=== PATIENT | female | born 1970 | race Caucasian/White ===

== ENCOUNTER 2018-11-15 09:00 | Inpatient (IN) ==
--- NOTE | 2018-11-11 14:38 | Anesthesiology Consultation ---
Date of Service November 11, 2018 Assessment & Plan (1) Encounter for pre-operative examination: - Check test AM DOS Chart Review Chart Review: Acceptable Risk for Surgery (pending review of confirmed preop EKG (11/11/18 [facility])- still unconfirmed at time of chart review) and Patient NOT seen in Pre Admission Testing History Surgery Operation Date: 11/15/18 11:00 Proposed Procedures p Left Shoulder Proximal Humerus Fracture Open Reduction Internal Fixation - Dave Wolf MD Height/Weight Height: 5 ft 6 in Weight: 72.575 kg Allergies Allergy/AdvReac Type Severity Reaction Status Date / Time No Known Allergies Allergy Unverified 11/11/18 14:35 Medications Home Medications Medication Instructions Recorded Confirmed Last Taken atorvastatin 10 mg PO DAILY 11/11/18 11/11/18 Unknown sertraline [Zoloft] 25 mg PO DAILY 11/11/18 11/11/18 Unknown Past Medical History Medical History Acid reflux Cardiac murmur PER PATIENT QUESTIONNAIRE; NO RECENT ECHO; NO FURTHER DETAILS Depression ? - PT ON ZOLOFT Hyperlipidemia Past Surgical History Surgical History History of section X4 History of PONV History of PONV Social History Hx Alcohol Use: Yes alcohol intake frequency: a few times a month Testing Laboratory Results 11/11/18 WBC 6.51 H/H 12.4/36.6 PLATELETS 202 SODIUM 139 POTASSIUM 3.9 CHLORIDE 103 CO2 29 BUN 10 CREATININE 0.88 GLUCOSE 94 PT 10.9 INR 1.1 Electrocardiogram Date: 11/11/18 SB at 53bpm. Pulmonary disease pattern. LAFB. (unconfirmed report).
--- NOTE | 2018-11-14 08:54 | History & Physical Report ---
Date of Service November 14, 2018 Assessment & Plan (1) Proximal humerus fracture: Patient has a significantly displaced proximal humerus fracture. Treatment options were discussed and surgical intervention was recommended. Risks, benefits and alternatives to surgery including but not limited to infection, DVT, pain, stiffness, need for revision surgery, damage to blood vessels, damage to nerves, PE, , were discussed with the patient and they wish to proceed. Plan will be for ORIF left proximal humerus fracture. All questions answered. Surgery is scheduled for 11/15/[address] [facility]. She will follow up in the office about 2 weeks post operatively. Encounter type: subsequent encounter Fracture type: closed Fracture morphology: other fracture Fracture alignment: displaced Laterality: left Fracture healing: with routine healing Qualified Code(s): S42.292D - Other displaced fracture of upper end of left humerus, subsequent encounter for fracture with routine healing History of Present Illness Chief Complaint: Left proximal humerus fracture Patient is a 48 year old female with PMHx significant for GERD and a murmur (states has been told she has a murmur but no further testing needed). She presents with a displaced proximal humerus fracture. [place] causing her to fall hard into the ground. X- rays were obtained and demonstrated a displaced proximal humerus fracture. The head itself was still located within the glenoid. A CT scan was also obtained for preoperative planning. Patient denies headaches, sweats, fevers, chills, double vision, blurred vision, cough, sore throat, dysphagia, chest pain, sob, wheezing, n/v/d/c, numbness, tingling, fatigue, urinary symptoms, mood disorders. ROS positive for left shoulder pain. Allergies Allergy/AdvReac Type Severity Reaction Status Date / Time No Known Allergies Allergy Unverified 11/11/18 14:35 Home Medications Home Medications Medication Instructions Recorded Confirmed Type atorvastatin 10 mg PO DAILY 11/11/18 11/11/18 History sertraline [Zoloft] 25 mg PO DAILY 11/11/18 11/11/18 History Past Med/Surg History Medical History Acid reflux Cardiac murmur PER PATIENT QUESTIONNAIRE; NO RECENT ECHO; NO FURTHER DETAILS Depression ? - PT ON ZOLOFT Hyperlipidemia Surgical History History of section X4 Social History Hx Alcohol Use: Yes Review of Systems All systems reviewed & are unremarkable except as noted in HPI & below Physical Exam Constitutional: well developed and well nourished; no acute distress Eyes: PERRL, conjunctivae normal, anicteric sclerae ENMT: external ear and nose normal, oropharynx normal Neck: trachea midline, no thyromegaly Respiratory: normal respiratory effort, lungs clear to auscultation Cardiovascular: RRR, no murmur, no edema Musculoskeletal: Left shoulder-sling in place. Tenderness over proximal humerus and shoulder. Fingers are mobile. Sensation intact. Distal pulses are +2 bilaterally. Sensation to axillary nerve distribution intact. Distally neurologically intact. Skin: no rashes, warm and dry Neurologic: patellar DTR's 2+ bilat, sensation intact Psychiatric: A+Ox3, euthymic affect Results & Data Diagnostic Findings Left shoulder radiographs: Displaced proximal humerus fracture, humeral head is located within the glenoid.
[~2018-11-15 09:00] MED LIST: DEXAMETHASONE SOD INJ 4 MG/ML VIAL ONE; EPINEPHrine INJ 1 MG/ML AMP ONE; LR 15ML/HR IV SCH; ROPIVACAINE 0.5% 5 MG/ML 30 ML VIAL ONE
--- NOTE | 2018-11-15 09:46 | History & Physical Bridge Note ---
Date of Service November 15, 2018 History & Physical Bridge Note I have examined the patient, reviewed the History & Physical and in the interval since the performance of the History & Physical I have noted the following changes of clinical significance: she is having difficulty bringing the index finger and thumb together. sensation appears to be intact
[2018-11-15] MEDS ORDERED: CEFAZOLIN 2,000 MG/15 ML IV PUSH IV ONE (10:06)
[2018-11-15] MEDS ORDERED: fentaNYL citrate 100 MCG/2 ML VIAL ONE ×2 (10:29→11:22)
[2018-11-15] MEDS ORDERED: MIDAZOLAM HCL 1 MG/ML 2ML VIAL ONE ×2 (10:29)
[2018-11-15] MEDS ORDERED: HYDROmorphone INJ 2 MG/ML SYR/VIAL ONE (11:23)
[2018-11-15] MEDS ORDERED: ATROPINE SULFATE 0.1 MG/ML 10ML SYR IV PRN (12:42)
[2018-11-15] MEDS ORDERED: PROMETHAZINE HCL 12.5 MG in SODIUM CHLORIDE 0.9% 50 ML IV PRN (12:42)
[2018-11-15] MEDS ORDERED: ePHEDrine sulfate 50 MG/ML AMP IV PRN (12:42)
[2018-11-15] MEDS ORDERED: NALOXONE HCL 0.4 MG/1 ML VIAL/CARP IV PRN ×2 (12:42→13:55)
[2018-11-15] MEDS ORDERED: ONDANSETRON INJ 2 MG/ML 2 ML VIAL IV PRN ×2 (12:42→13:55)
[2018-11-15] MEDS ORDERED: HYDROmorphone INJ 1 MG/ML SYRINGE IV PRN (12:42)
[2018-11-15] MEDS ORDERED: LABETALOL HCL IV 5 MG/ML 20ML IV PRN (12:42)
[2018-11-15] MEDS ORDERED: FLUMAZENIL 0.1 MG/1 ML 10 ML VIAL IV PRN (12:42)
[2018-11-15] MEDS ORDERED: ROCURONIUM BROMIDE 10 MG/ML 5 ML VIAL ONE (12:44)
[2018-11-15] MEDS ORDERED: NEOSTIGMINE METHYLSULFATE 1 MG/ML 10ML VIAL ONE (12:44)
[2018-11-15] MEDS ORDERED: METOCLOPRAMIDE HCL INJ 5 MG/ML 2 ML VIAL ONE (12:44)
[2018-11-15] MEDS ORDERED: LIDOCAINE HCL 2% 2 ML VIAL/AMP(20MG/ML) INFIL ONE (12:44)
[2018-11-15] MEDS ORDERED: DEXAMETHASONE SOD INJ 4 MG/ML VIAL ONE (12:44)
[2018-11-15] MEDS ORDERED: PROPOFOL IV EMULSION 10 MG/ML 20 ML VIAL IV ONE (12:44)
[2018-11-15] MEDS ORDERED: ONDANSETRON INJ 2 MG/ML 2 ML VIAL ONE (12:44)
[2018-11-15] MEDS ORDERED: raNITIdine HCl 25 MG/ML VIAL IV ONE (12:44)
[2018-11-15] MEDS ORDERED: GLYCOPYRROLATE 0.2 MG/ML VIAL ONE (12:44)
[2018-11-15] MEDS ORDERED: PHENYLEPHRINE 100MCG/ML 5ML SYR ONE (12:44)
[2018-11-15] MEDS ORDERED: ePHEDrine sulfate 50 MG/ML SYR ONE (12:44)
[2018-11-15] MEDS ORDERED: KETOROLAC 30 MG/ML VIAL ONE (12:46)
--- NOTE | 2018-11-15 13:04 | Operative Report ---
Post Operative Report Pre & Post Diagnosis Operation Date: 11/15/18 11:00 Pre-Op Diagnosis: Unspecified Fracture of Upper End of Unspecified Humerus Post-Op Diagnosis: Unspecified Fracture of Upper End of Unspecified Humerus Procedure Operation Date: 11/15/18 11:00 Actual Procedures p Left Shoulder Proximal Humerus Fracture Open Reduction Internal Fixation(Left) - Dave Wolf MD Surgeon Dave Wolf MD Fixed Income Portfolio Manager Ezekiel Martinez PA-C Estimated Blood Loss 20 Findings Consistent with Post-Op Diagnosis Specimens None Drains None Anesthesia Type General Regional Complications none Disposition Accompanied Patient To Recovery: No Disposition: Recovery Room Indications The patient is a 40-year-old female who sustained a displaced fracture (3 part) proximal humerus fracture. There is displacement of the diaphysis medially and greater tuberosity piece posteriorly as well as laterally. Given the amount of displacement I recommended open reduction internal fixation. She was having some weakness to pinch of the index and thumb preoperatively. Sensation appeared to be intact but she was having some motor weakness. Description of Procedure Risks, benefits and alternatives to surgery including, but not limited to, infection DVT, pain, stiffness, need for revision surgery, failure to relieve all symptoms, damage to blood vessels, damage to nerves, risk of anesthesia were discussed with the patient and they wished to proceed. The patient was identified. Laterality was confirmed and marked. The patient received a preoperative antibiotic as well as an interscalene block. They were transferred to the operating room and placed in the supine position and induced into general endotracheal anesthesia per the anesthesia staff. There were then placed in a slight beachchair position. All pressure points were well padded.. We confirmed that we're able to achieve proper visualization of the fracture under fluoroscopy the arm was then prepped and draped in the usual standard manner with ChloraPrep. I made a longitudinal incision just lateral to the coracoid, sharply incising through the skin and utilizing Bovie electrocautery to achieve hemostasis. I identified the cephalic vein and mobilized it laterally with the deltoid. I mobilize the pectoralis and mobilize this medially releasing a small portion of the upper border of the pec tendon to improve visualization. I then identified and mobilized the conjoined tendon. I identified the long head of the biceps tendon. The proximal humerus diaphysis was underneath of the coracoid. This was bluntly able moved back into proper position. Holding traction on the arm I then reduced the fracture. I placed to #2 ultra braid sutures into the greater tuberosity piece to help hold this reduced. I then pinned the diaphysis to the humeral head. I then positioned a standard size Synthes proximal humerus locking plate into position. I placed a nonlocking screw into the oblong hole and adjusted the height of the plate as necessary. I then placed 2 locking screws into the humeral head while holding the reduction. I placed an additional locking screw distally. I then took the arm through live fluoroscopy to ensure that we maintained good reduction and plate placement. I was satisfied with reduction of the fracture and the alignment of the plate. I then placed 2 additional locking screws distally and placed additional locking screws proximally into the humeral head. I then again confirmed reduction on AP and scapular Y views and I was satisfied with the reduction as well as the screw lengths. The suture for the greater tuberosity fragment was then tied to the plate. I thoroughly irrigated the wound. The deltopectoral interval was closed with interrupted #1 Ethibond suture. The subcutaneous tissue was closed with interrupted 2-0 Vicryl suture. The skin was closed with hugo. A sterile dressing was applied. A sling was placed. All needle and sponge counts were correct at the end of the procedure. The patient was transferred to the PACU in stable condition without apparent complication. The PA-C was necessary for assistance with procedure for assistance in positioning, I attest to the content of the Intraoperative Record and any orders documented therein. Any exceptions are noted below.
--- NOTE | 2018-11-15 13:04 | Fluoroscopy Report ---
FL humerus LT 2V CLINICAL HISTORY: LEFT SHOULDER PROXIMAL HUMERUS FX ORIF COMPARISON STUDY: None FLUOROSCOPY TIME: 1 minute 44 seconds. NUMBER OF FLUOROSCOPIC IMAGES: 2 FINDINGS: 2 intraoperative fluoroscopic spot images demonstrate internal fixation of a proximal humer al fracture with a lateral metallic plate and multiple screws. There is no dislocation. IMPRESSION: Internally fixated proximal humeral fracture. Electronically signed by: Jordin Robertson M.D. 11/15/2018 1:02 PM
--- NOTE | 2018-11-15 13:30 | Anesthesiology Progress Note ---
Date of Service November 15, 2018 Anesthesia Post Procedure Vital Signs Vital Signs: Temp Pulse Pulse Resp BP Pulse Ox 11/15/18 13:20 79 18 133/73 99 11/15/18 13:10 74 16 129/70 97 11/15/18 13:02 36.6 C 90 12 134/69 98 11/15/18 09:33 36.6 C 68 18 146/80 H 98 Pain Intensity Left Upper Arm: Pain Intensity: 5 Transfer of Care Handoff Completed per policy Notes Mental Status: alert / awake / arousable Patient Amnestic to Procedure: Yes Nausea / Vomiting: adequately controlled Pain: adequately controlled Airway Patency, RR, SpO2: stable & adequate BP & HR: stable & adequate Hydration State: stable & adequate Anesthetic Complications: no major complications apparent
[2018-11-15] MEDS ORDERED: SODIUM CHLORIDE 0.9% 1000ML 1,000 ML IV SCH (13:55)
[2018-11-15] MEDS ORDERED: MAGNESIUM HYDROXIDE SUSP 30 ML UDC PO PRN (13:55)
[2018-11-15] MEDS ORDERED: METOCLOPRAMIDE HCL INJ 5 MG/ML 2 ML VIAL IV PRN (13:55)
[2018-11-15] MEDS ORDERED: BISACODYL 10 MG SUPP PR PRN (13:55)
[2018-11-15] MEDS ORDERED: HYDROmorphone INJ 0.5 MG/0.5 ML SYR IV PRN (13:55)
[2018-11-15] MEDS: CEFAZOLIN 1000MG 1,000 MG/7.5 ML SYR IV SCH (19:43)
[2018-11-15] MEDS: DOCUSATE SODIUM 100 MG CAP PO SCH (20:30)
[2018-11-15] MEDS ORDERED: SENNA 8.6 MG TAB PO SCH (21:00)
[2018-11-15] MEDS ORDERED: SERTRALINE HCL 50 MG TABLET PO SCH (21:00)
[2018-11-15] MEDS ORDERED: ATORVASTATIN 20 MG TAB PO SCH (21:00)
[2018-11-15] MEDS: ACETAMINOPHEN 500 MG TAB PO SCH (21:09)
[2018-11-15] MEDS ORDERED: COUGH DROP (SUGAR FREE) LOZ 24 LOZ/1 BOX BUCCAL ONE (23:38)
[2018-11-16] MEDS: OXYCODONE HCL IR 5 MG TAB (IMMEDIATE RELEASE) PO PRN ×3 (02:23→10:56)
[2018-11-16] MEDS: CEFAZOLIN 1000MG 1,000 MG/7.5 ML SYR IV SCH (02:24)
[2018-11-16] MEDS: ACETAMINOPHEN 500 MG TAB PO SCH ×2 (05:41→13:23)
[2018-11-16 06:23] LABS: Hematocrit (blood only) 29.6 % (37-47); Hemoglobin 10.1 g/dL (12.0-16.0); Mean Corpuscular Hgb Conc 34.1 g/dL (32-36); Mean Corpuscular Volume 86.3 fL (80-100); Mean Platelet Volume 9.2 fL (7.4-10.4); Platelet Count 174 K/uL (130-400); RDW Coefficient of Variation 12.7 % (11.5-14.5); RDW Standard Deviation 40.3 fL (36.4-46.3); Red Blood Count 3.43 M/uL (4.2-5.4); White Blood Count 7.82 K/uL (4.8-10.8)
[2018-11-16 06:48] LABS: BUN Creatinine Ratio 11.1 (10-20); Creatinine Clr Calc Pharmacy 93.1 ml/min; Est GFR (African American) 107.5; Est GFR (Non-African American) 92.8; Potassium 3.9 mmol/L (3.5-5.1)
--- NOTE | 2018-11-16 08:19 | Anesthesiology Progress Note ---
Date of Service November 16, 2018 Anesthesia Post Procedure Vital Signs Vital Signs: Temp Pulse Pulse Resp BP Pulse Ox 11/16/18 06:56 36.8 C 56 L 18 118/74 97 11/16/18 03:00 36.8 C 58 L 16 110/67 97 11/15/18 23:35 36.8 C 66 16 115/65 96 11/15/18 21:06 36.8 C 68 16 119/72 97 11/15/18 17:27 36.5 C 79 16 121/71 96 11/15/18 16:12 36.3 C L 66 16 118/70 96 11/15/18 15:23 36.6 C 80 18 125/71 92 11/15/18 14:20 75 18 113/70 96 11/15/18 13:50 36.6 C 81 16 121/73 96 11/15/18 13:40 37.0 C 78 23 131/72 94 11/15/18 13:30 77 18 136/73 96 11/15/18 13:20 79 18 133/73 99 11/15/18 13:10 74 16 129/70 97 11/15/18 13:02 36.6 C 90 12 134/69 98 11/15/18 09:33 36.6 C 68 18 146/80 H 98 Pain Intensity Left Upper Arm: Pain Intensity: 4 Notes Mental Status: alert / awake / arousable and participated in evaluation Patient Amnestic to Procedure: Yes Nausea / Vomiting: adequately controlled Pain: adequately controlled Airway Patency, RR, SpO2: stable & adequate BP & HR: stable & adequate Hydration State: stable & adequate Anesthetic Complications: no major complications apparent
[2018-11-16] MEDS: DOCUSATE SODIUM 100 MG CAP PO SCH (08:51)
[2018-11-16] MEDS ORDERED: CHOLECALCIFEROL 1,000 UNITS TAB PO SCH (09:00)
[2018-11-16] MEDS ORDERED: CYANOCOBALAMIN 500 MCG TABLET (VITAMIN B-12) PO SCH (09:00)
[2018-11-16] MEDS ORDERED: MULTIVITAMIN TAB PO SCH (09:00)
--- NOTE | 2018-11-16 10:55 | Orthopedic Progress Note ---
Date of Service November 16, 2018 Assessment & Plan (1) Proximal humerus fracture: Postop day 1 status post ORIF left proximal humerus fracture PT and OT protocols have been ordered. Continue current pain management. Plan for dc to home today if pain control remains stable and progressing with PT. Subjective Postop day 1 status post ORIF left proximal humerus fracture. Patient is lying in bed. She is awake and alert. She has minimal discomfort at this time in the left shoulder. He states that her thumb index finger and ring fingers are still numb and tingly and she has some motion to them but not full range of motion. She denies any shortness of breath, chest pain, lightheadedness, nausea or vomiting. Physical Exam Physical Exam: Dressings are clean, dry, and intact. She is nontender at the elbow and wrist. She has good range of motion of her left wrist. She is not fully capable of making a fist at this time. She has good range of motion of her fourth and fifth fingers however she has weakness in her thumb, index, and ring fingers which she states she had prior to surgery. This has not worsened. Weakness noted with active flexion of the first through third fingers. Decreased sensation in these 3 fingers as well. She has good capillary refill. Results & Data Vital Signs (Past 12 Hours) Vital Signs Temp Pulse Resp BP Pulse Ox 11/16/18 06:56 36.8 C 56 L 18 118/74 97 11/16/18 03:00 36.8 C 58 L 16 110/67 97 11/15/18 23:35 36.8 C 66 16 115/65 96 (1) Proximal humerus fracture Encounter type: subsequent encounter Fracture type: closed Fracture morphology: other fracture Fracture alignment: displaced Laterality: left Fracture healing: with routine healing Qualified Code(s): S42.292D - Other displaced fracture of upper end of left humerus, subsequent encounter for fracture with routine healing
--- NOTE | 2018-11-16 20:01 | Discharge Summary ---
Date of Service November 16, 2018 Admission HPI Per Admitting Provider Patient is a 48 year old female with PMHx significant for GERD and a murmur (states has been told she has a murmur but no further testing needed). She presents with a displaced proximal humerus fracture. [place]/10/18 [place] wave causing her to fall hard into the ground. X- rays were obtained and demonstrated a displaced proximal humerus fracture. The head itself was still located within the glenoid. A CT scan was also obtained for preoperative planning. Patient denies headaches, sweats, fevers, chills, double vision, blurred vision, cough, sore throat, dysphagia, chest pain, sob, wheezing, n/v/d/c, numbness, tingling, fatigue, urinary symptoms, mood disorders. ROS positive for left shoulder pain. Admission Exam Per Admitting Provider Constitutional: well developed and well nourished; no acute distress Eyes: PERRL, conjunctivae normal, anicteric sclerae ENMT: external ear and nose normal, oropharynx normal Neck: trachea midline, no thyromegaly Respiratory: normal respiratory effort, lungs clear to auscultation Cardiovascular: RRR, no murmur, no edema Musculoskeletal: Left shoulder-sling in place. Tenderness over proximal humerus and shoulder. Fingers are mobile. Sensation intact. Distal pulses are +2 bilaterally. Sensation to axillary nerve distribution intact. Distally neurolo gically intact. Skin: no rashes, warm and dry Neurologic: patellar DTR's 2+ bilat, sensation intact Psychiatric: A+Ox3, euthymic affect Principal Diagnosis Proximal humerus fracture of left shoulder Discharge Exam Constitutional well developed and well nourished; no acute distress Eyes PERRL, conjunctivae normal, anicteric sclerae ENMT external ear and nose normal, oropharynx normal Neck trachea midline, no thyromegaly Respiratory normal respiratory effort, lungs clear to auscultation Cardiovascular RRR, no murmur, no edema Skin no rashes, warm and dry Neurologic patellar DTR's 2+ bilat, sensation intact Psychiatric A+Ox3, euthymic affect Discharge Data Allergies Allergy/AdvReac Type Severity Reaction Status Date / Time No Known Allergies Allergy Verified 11/15/18 09:28 Consultations 11/15/18 13:55 Consult Case Management - Discharge Planning Routine Procedures Performed Operation Date: 11/15/18 11:00 Actual Procedures p Left Shoulder Proximal Humerus Fracture Open Reduction Internal Fixation(Left) - Dave Wolf MD Ordered Studies 11/15/18 05:00 US - OR guided needle placemen Routine 11/15/18 11:00 FL fluoroscopy <1hr Routine FL humerus LT 2V Routine Hospital Course (1) Proximal humerus fracture: Patient presented for same day admission following ORIF left proximal humerus fracture on 11/15/18. She tolerated procedure well. The Patient had an uneventful hospital course. Post-operatively, her activity was progressed and well tolerated. Labs remained stable- lowest hemoglobin recorded: 10.1. Pain controlled on oral medications. 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 On POD#1 this was noted to be persistent. I was not worse than it was prior to surgery, however had not noticed any improvement. Will follow. Please refer to daily progress notes and PT notes for complete details. After exam on 11/16/18, patient was felt to be stable for discharge home. Patient will f/u in the office in about 2 weeks for further evaluation including x-rays and incision check, sooner if having any issues or concerns. Lab Results 11/15/18 11/15/18 11/16/18 Range/Units 09:15 09:43 06:09 WBC 7.82 (4.8-10.8) K/uL RBC 3.43 L (4.2-5.4) M/uL Hgb 10.1 L (12.0-16.0) g/dL Hct 29.6 L (37-47) % MCV 86.3 (80-100) fL MCH 29.4 (25-34) pg MCHC 34.1 (32-36) g/dL RDW Std Deviation 40.3 (36.4-46.3) fL RDW Coeff of Tanner 12.7 (11.5-14.5) % Plt Count 174 (130-400) K/uL MPV 9.2 (7.4-10.4) fL Sodium (136-145) mmol/L Potassium (3.5-5.1) mmol/L Chloride (98-107) mmol/L Carbon Dioxide (21-32) mmol/L Anion Gap (3-11) BUN (7-18) mg/dl Creatinine (0.6-1.2) mg/dl Est Cr Clr Drug Dosing ml/min Est GFR ( Amer) Est GFR (Non-Af Amer) BUN/Creatinine Ratio (10-20) Glucose (70-99) mg/dl Calcium (8.5-10.1) mg/dl POC Ur Test NEG (NEG) Blood Type A Positive Antibody Screen NEGATIVE 11/16/18 Range/Units 06:09 WBC (4.8-10.8) K/uL RBC (4.2-5.4) M/uL Hgb (12.0-16.0) g/dL Hct (37-47) % MCV (80-100) fL MCH (25-34) pg MCHC (32-36) g/dL RDW Std Deviation (36.4-46.3) fL RDW Coeff of Tanner (11.5-14.5) % Plt Count (130-400) K/uL MPV (7.4-10.4) fL Sodium 141 (136-145) mmol/L Potassium 3.9 (3.5-5.1) mmol/L Chloride 106 (98-107) mmol/L Carbon Dioxide 30 (21-32) mmol/L Anion Gap 5.0 (3-11) BUN 9 (7-18) mg/dl Creatinine 0.76 (0.6-1.2) mg/dl Est Cr Clr Drug Dosing 93.1 ml/min Est GFR ( Amer) 107.5 Est GFR (Non-Af Amer) 92.8 BUN/Creatinine Ratio 11.1 (10-20) Glucose 107 H (70-99) mg/dl Calcium 9.0 (8.5-10.1) mg/dl POC Ur Test (NEG) Blood Type Antibody Screen Total Time Total Time Spent Total Time Spent (In Minutes): 20 Discharge Plan Discharge Items Patient Disposition: Home - Self-Care Reason For Visit: Unspecified Fracture of Upper End of Unspecified H Discharge Diagnosis: Left proximal humerus fractur Discharge Goals: Decrease discomfort and Improve function Activity: Per 'Additional Instructions' section Weightbearing: Left non-weightbearing Non-emergency contact: Surgeon Call non-emergency contact if: you have any medication questions, your pain is concerning for you, you have a fever, your temperature is above 101.5, your wound has increased redness and your wound has increased drainage Follow-up/Referrals: Jn Lyn [Primary Care Provider] - Diet: Regular Addtl Provider Instructions: ACTIVITY RECOMMENDATIONS: SELF CARE INSTRUCTIONS A. You are to wear your sling/immobilizer at all times. You may take for hygiene purposes. B. You may perform dry, daily dressing changes. Leave post op dressing in place until 48 hours postsurgery. Please keep your incision covered. You may shower 48 hours after surgery. Do not apply soap or any ointment/lotions directly over incision. Do not soak incision in bath tub/swimming pool. D. You may use ice as needed to operative shoulder. SPECIAL CARE INSTRUCTIONS VERY IMPORTANT TO READ AND REVIEW A. There are a few signs you need to watch for after you are home. Call [facility] at [phone] if you experience any of the followin. Increased severe shoulder pain. Some pain is expected especially when you exercise. 2. Increased swelling in you shoulder or arm; pain or swelling in either upper extremity. 3. Any fluid drainage from the incision. 4. Shortness of breath or chest pain. B. Please call [facility] at [phone] if you have any questions or concerns about your operation or recovery. C. Call your physician if: 1. Temperature is greater than 101 degrees (F). 2. Pain is not relieved by prescribed pain medications. 3. Increase drainage or redness from incision. 4. Unanswered questions or concerns. FOLLOW UP VISIT: Please call [facility] at [phone] to schedule a follow up appointment with Dr. Wolf or his PA in 12-14 days from your surgery date. Prescriptions: New oxycodone-acetaminophen [Percocet] 5-325 mg tablet 1 - 2 tab PO Q6H PRN (Reason: pain) Qty: 30 RF: 0 Continued atorvastatin 20 mg Tablet 20 mg PO HS RF: 0 cyanocobalamin (vitamin B-12) 1,000 mcg Tablet 1,000 mcg PO DAILY RF: 0 sertraline [Zoloft] 50 mg Tablet 50 mg PO HS RF: 0 cholecalciferol (vitamin D3) [Vitamin D3] 1,000 unit Tablet 1,000 unit PO DAILY RF: 0 Discontinued oxycodone-acetaminophen 5-325 mg Tablet 1 tab PO Q4H PRN (Reason: Pain) RF: 0 Stand-Alone Forms: [place], Opioid Pain Management [place]/Other Patient Handouts: Oxycodone Hydrochloride Acetaminophen Oral tablet Discharge Orders: Discharge Order (Routine); Ordered 11/16/18 Ordered By: Gianni Black Admission Data Admit Date/Time: 11/15/18 13:09 Attending Provider: Dave Wolf Admit Provider: Dave Wolf Primary Care Provider: Jn Lyn Service: Surgical Services Other Interventions: Discharge Summary Assessment (RN) Last Done: 11/16/18 12:48 DC Date/Time DO NOT enter until pt leaves facility: 11/16/18 13:30
== END 2018-11-16 13:30 | disposition home or self-care (01) | DRG 494 ==
LOC: ASU 09:00 → 3E 13:09